=== PATIENT | female | born 1995 | race African-American/Black ===

== ENCOUNTER 2021-10-30 15:35 | Emergency (ER) | payer OTHER ==
[~2021-10-30] VITALS: Ht 167.6 cm; Wt 61.0 kg
[2021-10-30 15:46] VITALS: BP 105/71
== END 2021-10-30 19:30 | disposition left against medical advice (07) ==
LOC: ER 15:35
DX: Z53.21 Procedure and treatment not carried out due to patient leaving prior to being seen by health care provider (principal)

== ENCOUNTER 2023-04-07 10:46 | Emergency (ER) | payer OTHER ==
[~2023-04-07] VITALS: Ht 170.2 cm; Wt 68.0 kg
[2023-04-07 10:50] VITALS: BP 104/72; PULSE 91; RESP 20; TEMP 98; O2SAT 97
[2023-04-07] MEDS ORDERED: TETANUS, DIPHTHERIA, PERTUSSIS VAC/PF 0.5ML (>10YR OLD) IM ONE (11:30)
[2023-04-07] MEDS ORDERED: IBUPROFEN 600MG TABLET PO ONE (11:30)
[2023-04-07] MEDS ORDERED: IBUP-2029 MT (13:59)
[2023-04-07] MEDS ORDERED: BO1 TP (14:00)
== END 2023-04-07 14:55 | disposition home or self-care (01) ==
LOC: ER 10:46
DX: S80.12XA Contusion of left lower leg, initial encounter (principal); Y08.89XA Assault by other specified means, initial encounter; Y93.89 Activity, other specified; Y92.89 Other specified places as the place of occurrence of the external cause; Y99.8 Other external cause status
CPT/HCPCS: 81025; 73562; 73610; 90715; 90471; 99284; Z7610